=== PATIENT | female | born 1990 | race Caucasian/White ===

== ENCOUNTER 2019-02-20 07:02 | Inpatient (IN) | payer OTHER ==
[2019-02-20 07:50] LABS: APPEARANCE,URINE SLIGHTLY-CLOUDY; BILIRUBIN,URINE NEGATIVE (NEGATIVE); COLOR,URINE YELLOW; GLUCOSE, URINE NEGATIVE (NEGATIVE); KETONES,URINE NEGATIVE (NEGATIVE); LEUKOCYTE ESTERASE,URINE NEGATIVE (NEGATIVE); NITRITE,URINE NEGATIVE (NEGATIVE); PROTEIN,URINE 30 mg/dL (NEGATIVE); URINE SPECIFIC GRAVITY 1.014; UROBILINOGEN,URINE NEGATIVE mg/dL (<2.0)
[2019-02-20] MEDS: RINGERS SOLUTION,LACTATED 1,000 ML IV PRN ×4 (08:10→17:32)
[2019-02-20 08:13] LABS: URINE AMPHETAMINES SCREEN NEGATIVE; URINE BARBITURATES SCREEN NEGATIVE; URINE BENZODIAZEPINES SCREEN NEGATIVE; URINE COCAINE SCREEN NEGATIVE; URINE MARIJUANA (THC) SCREEN NEGATIVE; URINE METHADONE SCREEN NEGATIVE; URINE PHENCYCLIDINE SCREEN NEGATIVE
[2019-02-20] MEDS ORDERED: PENICILLIN G-K 5 MILLION UNIT VIAL ONE ×4 (08:25→20:12)
[2019-02-20] MEDS ORDERED: PENICILLIN G-K 5 MILLION UNIT VIAL IV ONE (08:30)
[2019-02-20 09:05] LABS: HEMATOCRIT 29.9 % (36.0-47.0); MEAN CORPUSCULAR HEMOGLOBIN 29.7 pg (27.0-33.4); MEAN CORPUSCULAR HGB CONC 33.4 g/dL (32.0-36.0); MEAN CORPUSCULAR VOLUME 89 fl (80-97); PLATELET COUNT 193 10^3/uL (150-450); RED BLOOD COUNT 3.36 10^6/uL (3.72-5.28); RED CELL DISTRIBUTION WIDTH 14.3 % (11.5-14.0); WHITE BLOOD COUNT 11.9 10^3/uL (4.0-10.5)
[2019-02-20] MEDS ORDERED: OXYTOCIN/NORMAL SALINE 20 UNIT/1,000 ML RTUINJ ONE (09:05)
[2019-02-20] MEDS ORDERED: LIDOCAINE 1% INJ-PF (10 MG/ML) 30 ML SDV ONE (09:05)
[2019-02-20] MEDS ORDERED: MISOPROSTOL 0.2 MG TABLET ONE (09:05)
[2019-02-20] MEDS ORDERED: OXYTOCIN 10 UNIT/ML VIAL ONE (09:05)
--- NOTE | 2019-02-20 10:33 | Warning Signs in Babies ---
VOD Warning Signs Datetime Report Generated by CPN: 02/20/2019 10:32 VOD#608 -Warning Signs in Babies: Viewed with Parent(s)/Family (02/20/2019 10:15:Lisa Lacy RN)
[2019-02-20] MEDS ORDERED: NALBUPHINE HCL INJ 10 MG/1 ML AMPULE INJ ONE (11:46)
[2019-02-20] MEDS ORDERED: PROMETHAZINE HCL INJ 25 MG/1 ML VIAL IV ONE (11:47)
[2019-02-20] MEDS ORDERED: FENTANYL/BUPIVACAINE/NS/PF 300 MCG/150 ML RTUINJ EPI ONE (11:57)
[2019-02-20] MEDS ORDERED: BUPIVACAINE HCL 0.25 % INJ/PF (2.5 MG/1 ML) 30 ML VIAL ONE (11:57)
[2019-02-20] MEDS ORDERED: EPHEDRINE SULFATE INJ 50 MG/1 ML AMPULE ONE (11:57)
[2019-02-20] MEDS: PENICILLIN G-K 5 MILLION UNIT VIAL IV SCH ×3 (12:12→20:20)
--- NOTE | 2019-02-20 15:03 | Admission Physical ---
Datetime Report Generated by CPN: 02/20/2019 15:02 CURRENT ADMISSION Chief Complaint: Uterine Contractions; Suspected Ruptured Membranes Admit Impression : Active Labor; Ruptured Membranes Admit Plan: Admit to Unit; Initiate Labor Protocol; Initiate Labor Augmentation Protocol ALLERGIES Medication Allergies: No Medication Allergies: No Known Drug Allergies (02/20/2019) Latex: No Latex Allergies Food Allergies: NONE Environmental Allergies: YES, TREES AND GRASS OBSTETRICAL HISTORY EDC: 02/28/2019 00:00 : 1 Para: 0 Term: 0 : 0 SAB: 0 IAB: 0 Ectopic: 0 Livin Cesareans: 0 VBACs: 0 Multiple Births: 0 Gestational Diabetes: No Rh Sensitization: No Incompetent Cervix: No HENRY: No Infertility: No ART Treatment: No Uterine Anomaly: No IUGR: No Hx Previous C/S: No Macrosomia: No Hx Loss/Stillborn: No PIH: No Hx : No Placenta Previa/Abruption: No Depression/PP Depression: No PTL/PROM: No Post Hemorrhage: No Current Procedures: Ultrasound; Colposcopy Obstetrical History Comments: G1- CURRENT , ABNORMAL PAP RESULTING IN COLPOSCOPY SEE RECORDS Alcohol: No Marijuana : No Cocaine: No Other Illicit Drugs: No Cigarettes: Never Smoker. [id number] MEDICAL HISTORY Diabetes: No Blood Transfusion: No Pulmonary Disease (Asthma, TB): No Breast Disease: No Hypertension: No School Director Surgery: No Heart Disease: No Hosp/Surgery: No Autoimmune Disorder: No Anesthetic Complications: No Kidney Disease: No Abnormal Pap Smear: Yes Neuro/Epilepsy: No Psychiatric Disorders: No Other Medical Diseases: No Hepatitis/Liver Disease: No Significant Family History: No Varicosities/Phlebitis: No Trauma/Violence : No Thyroid Dysfunction: No Medical History Comments: ABNORMAL PAP THIS INFECTIOUS HISTORY Gonorrhea: No Genital Herpes: No Chlamydia: No Tuberculosis: No Syphilis: No Hepatitis: No HIV/AIDS Exposure: No Rash or Viral Illness: No HPV: No PHYSICAL EXAM General: Normal HEENT: Normal Neurologic: Normal Thyroid: Normal Heart: Normal Lungs: Normal Breast: Normal Back: Normal Abdomen: Normal Genitourinary Exam: Normal Extremities: Normal DTRs: Normal Pelvic Type: Adequate Vital Signs: Reviewed; Within Normal Limits VAGINAL EXAM Dilatation: 5 Effacement: 50 Station: -2 MEMBRANES Pooling: Positive Membranes: Ruptured Amniotic Fluid Color: Clear FETUS A EGA: 38.6 Monitoring: External US FHR- Baseline: 130 Variability: Moderate 6-25bpm Accelerations: 15X15 Decelerations: None FHR Category: Category I Presentation: Vertex Admit Comment: G1 at 38.6 with SROM at 0400, clear -Admit to LDR -IVFs and ice chips only -GBS positive, PCN for prophylaxis -Amnisure positive -If contractions not regular begin low dose pitocin IV as needed -Plan for -Desires epidural when indicated PLANS FOR LABOR AND DELIVERY Labor and Delivery: None Pain Management: Natural Feeding Preference: Formula Benefit of Breast Feed Discussed: Yes Circumcision: Yes INFORMED CONSENT Informed Consent Obtained: Vaginal Delivery; Risks, Benefits and Alternatives Discussed Signature: with User ID: [email or web address] : with User ID: [email or web address]
[2019-02-20] MEDS ORDERED: PANTOPRAZOLE SODIUM 40 MG VIAL IV SCH (19:45)
[2019-02-20] MEDS ORDERED: GENTAMICIN SULFATE 110 MG in DEXTROSE 5%-WATER 100 ML IV SCH (22:00)
[2019-02-20] MEDS ORDERED: GENTAMICIN SULFATE INJ 80 MG/2 ML VIAL IV PRN (22:00)
[2019-02-20] MEDS ORDERED: LIDOCAINE 2% INJ-PF (20 MG/ML) 10 ML AMPUL ONE (22:11)
[2019-02-21] MEDS ORDERED: BENZOCAINE/MENTHOL AEROSOL SPRAY 56 ML TOP PRN (02:27)
[2019-02-21] MEDS ORDERED: ACETAMINOPHEN 650 MG SUPP.RECT PR PRN (02:27)
[2019-02-21] MEDS ORDERED: PROMETHAZINE HCL INJ 25 MG/1 ML VIAL IV PRN (02:27)
[2019-02-21] MEDS ORDERED: DIPHENHYDRAMINE HCL 25 MG CAPSULE PO PRN (02:27)
[2019-02-21] MEDS ORDERED: MEASLES,MUMPS&RUBELLA VACC/PF 0.5 ML VIAL SUBCUT PRN (02:27)
[2019-02-21] MEDS ORDERED: PSEUDOEPHEDRINE HCL 30 MG TABLET PO PRN (02:27)
[2019-02-21] MEDS ORDERED: GLYCERIN/WITCH HAZEL LEAF 1 EACH MED..WIPE TP PRN (02:27)
[2019-02-21] MEDS ORDERED: PROMETHAZINE HCL 25 MG TABLET PO PRN (02:27)
[2019-02-21] MEDS ORDERED: ACETAMINOPHEN WITH CODEINE #3 TABLET PO PRN ×2 (02:27)
[2019-02-21] MEDS ORDERED: MAGNESIUM HYDROXIDE SUSP 30 ML UDCUP PO PRN (02:27)
[2019-02-21] MEDS ORDERED: PROMETHAZINE HCL 25 MG SUPP.RECT PR PRN (02:27)
[2019-02-21] MEDS ORDERED: NA PHOS,M-B/NA PHOS,DI-BA (ADULT) 133 ML ENEMA PR PRN (02:27)
[2019-02-21] MEDS ORDERED: DIPH/PERTUSS(ACELL)/TETANUS VAC/PF 0.5 ML SYR (>=10YO) IM PRN (02:27)
[2019-02-21] MEDS ORDERED: OXYTOCIN/NORMAL SALINE 20 UNIT/1,000 ML RTUINJ IV PRN (02:27)
[2019-02-21] MEDS ORDERED: DIBUCAINE 1% OINTMENT 56 GM TP PRN (02:27)
[2019-02-21] MEDS: PENICILLIN G-K 5 MILLION UNIT VIAL IV SCH (02:38)
[2019-02-21] MEDS ORDERED: IBUPROFEN 800 MG TABLET ONE (02:41)
[2019-02-21] MEDS ORDERED: SENNOSIDES/DOCUSATE 8.6-50 MG 1 EACH TABLET ONE (02:41)
[2019-02-21] MEDS: SENNOSIDES/DOCUSATE 8.6-50 MG 1 EACH TABLET PO SCH ×2 (02:43→09:52)
[2019-02-21] MEDS: IBUPROFEN 800 MG TABLET PO SCH ×4 (02:43→22:23)
--- NOTE | 2019-02-21 03:38 | Delivery Summary ---
Del Sum A-C Datetime Report Generated by CPN: 02/21/2019 03:38 DELIVERY PERSONNEL DELIVERY PERSONNEL: [id number] Delivery Doctor:: Dawna Mckeon MD Labor and Delivery Nurse:: Anita Fair RNarea mechanic Nurse:: Suzette Borges RN Nursery Nurse:: Hayley Fair RN Return Agent/BLOW PIT OPERATOR: Kirstin Remington, WEBFED OFFSET PRESS OPERATOR MATERNAL INFORMATION Delivery Anesthesia: Epidural Medications After Delivery: Pitocin Bolus-Please Comment Meds After Delivery Comment: Pitocin 20 units/1000 ml NSS Estimated Blood Loss (ml): 200 Maternal Complications: None Provider Comments: Maternal fatigue encountered. Discussed vacuum assisted delivery and patient was agreeable. RIsks and benefits reviewed. A Kiwi vacuum was applied approximately 2 cm anterior from the posterior fontanel over the sagital suture. Suction was applied and traction used with maternal pushing during one contraction.THe head progressed past the introitus and the vacuum was released. After delivery of the head, a shoulder dystocia was encountered. Elida was initiated. Suprapubic pressure applied by RN and posterior shoulder turned with physicians hand in vagina. Following these maneuvers, then anterior shoulder delivered. The shoulders and the rest of the body followed easily. began crying with stimulation. Terminal meconium noted. Placenta delivered spontaneously and intact. A third degree laceration was noted into the rectal muscle. The muscle was stitched with interrupted stitiches and then the remaining laceration was repaired in a layered closure. A digital rectal exam was done noting no stitch or defect. MOther and infant both stable. LABOR SUMMARY EDC: 02/28/2019 00:00 No. Babies in Womb: 1 Attempted: No Labor Anesthesia: Epidural LABOR INFORMATION Reason for Induction: Not Applicable Onset of Labor: 02/20/2019 04:30 Complete Dilatation: 02/20/2019 16:17 Oxytocin: N/A Group B Beta Strep: POSITIVE Antibiotics # of Doses: 4 Antibiotics Time of Last Dose: 2019 Name of Antibiotic Given: PENICILLIN Steroids Given: None Reason Steroids Not Administered: Not Applicable Other Reason Not Administered: N/A MEMBRANES Membranes Rupture Method: Spontaneous Rupture of Membranes: 02/20/2019 04:30 Length of Rupture (hr): 20.65 Amniotic Fluid Color: Clear Amniotic Fluid Amount: Moderate Amniotic Fluid Odor: None STAGES OF LABOR Stage 1 hr: 11 Stage 1 min: 47 Stage 2 hr: 8 Stage 2 min: 52 Stage 3 hr: 0 Stage 3 min: 7 Total Time in Labor hr: 20 Total Time in Labor min: 46 VAGINAL DELIVERY Episiotomy: None Laceration #1: Perineal Laceration Extension #1: Third Degree, IIIa (Less than 50 percent ext anal sphincter thickness torn) Laceration Repair: Yes Laceration Repair Note: layered closure with interrupted suture in the rectal muscle, and 2-0 chromic used in a running layered closure for the remaining closure. Sponge Count Correct: Yes Sharps Count Correct: Yes CSECTION DELIVERY Primary Indication: N/A Secondary Indication: N/A CSection Incidence: N/A Labor: N/A Elective: N/A CSection Incision: N/A BABY A INFORMATION Delivery Date/Time: 02/21/2019 01:09 Method of Delivery: Vaginal Born in Route : No : N/A Forceps: N/A Vacuum Extraction: Successful Shoulder Dystocia : Yes SHOULDER DYSTOCIA BABY A Delivery of Head: 02/21/2019 01:07 Time Head to Delivery : 2.0 1st Intervention to Resolve: McRobert's Maneuver 2nd Intervention to Resolve: Suprapubic Pressure Verify NO Fundal Pressure: No Fundal Pressure Applied Arm Under Symphisis at Del: Right PRESENTATION/POSITION BABY A Presentation: Cephalic Cephalic Presentation: Vertex Breech Presentation: N/A PLACENTA INFORMATION BABY A Placenta Delivery Time : 02/21/2019 01:16 Placenta Method of Delivery: Spontaneous Placenta Status: Delivered SCORES BABY A Heart Rate 1 min: >100 bpm Resp Effort 1 min: Good Cry Reflex Irritability 1 min: Cough or Sneeze or Pulls Away Muscle Tone 1 min: Active Motion Color 1 min: Blue/Pale Resuscitation Effort 1 min: Tactile Stimulation SCORE 1 MIN: 8 Heart Rate 5 min: >100 bpm Resp Effort 5 min: Good Cry Reflex Irritability 5 min: Cough or Sneeze or Pulls Away Muscle Tone 5 min: Active Motion Color 5 min: Body Caro, Extremities Blue Resuscitation Effort 5 min: Tactile Stimulation SCORE 5 MIN: 9 INFANT INFORMATION BABY A Gestational Age at Delivery: 39.0 Gestational Status: Full Term- 39- 40.6 Weeks Infant Outcome : Liveborn Condition : Stable Infant Sex: Male IDENTIFICATION BABY A Infant Verification Date/Time: 02/21/2019 01:25 ID Band Number: [id number] Mother's Name Verified: Yes RN Verifying Infant: , RN Additional Verifying Personnel: A.Remington, WEBFED OFFSET PRESS OPERATOR WEIGHT/LENGTH BABY A Birthweight (gm): 3926 Infant Weight (lb): 8 Weight (oz): 10 Infant Length (in): 20.25 Length (cm): 51.44 CORD INFORMATION BABY A No. Cord Vessels: 3 Nuchal Cord : N/A Cord Blood Taken: Yes-For Eval (Mom's Blood Type - or O+) ASSESSMENT BABY A Infant Complications: None Physical Findings at Delivery: Caput Succedaneum Infant Respirations: Appears Normal Skin to Skin: Yes Care By: Carole, RN Transferred To: Remains with Mother BABY B INFORMATION : N/A SIGNATURES Signature: with User ID: [email or web address] : with User ID: [email or web address]
[2019-02-21] MEDS ORDERED: CEFAZOLIN 2 GM/D5W RTU 2 GM/50 ML RTUPB IV ONE (06:00)
[2019-02-21] MEDS ORDERED: CEFAZOLIN 2 GM/D5W RTU 2 GM/50 ML RTUPB IV SCH (06:00)
[2019-02-21] MEDS ORDERED: CEFAZOLIN INJ 1 GM VIAL ONE (06:21)
--- NOTE | 2019-02-21 09:18 | PDOC PROGRESS REPORT ---
Subjective-OB Progress Note for:: 02/21/19 - Delivery Day, pt up, voiding, no complaints, plans to bottle feed. Had VAD w/ mild shoulder dystocia. Physical Exam (OB) Vital Signs: Temp Pulse Resp BP Pulse Ox 98.5 F 104 H 14 105/56 L 99 02/21/19 07:15 02/21/19 07:15 02/21/19 07:15 02/21/19 07:15 02/21/19 07:15 Intake & Output 02/20/19 02/21/19 02/22/19 06:59 06:59 06:59 Intake Total 1171 Balance 1171 Weight 73.1 kg - General General Appearance: Appears well, Alert In distress: None - Lochia Lochia Amount: Small 10-25 ml Lochia Color: Rubra/Red - Abdomen Description: Soft Hernia Present: No Fundal Description: Firm, Midline Fundal Height: u/u - u/2 - Respiratory Respiratory Status: No respiratory distress - Genitourinary Genitourinary Note: voiding - Psychological Associated symptoms: Normal affect, Normal mood Objective-Diagnostic Laboratory: 02/20/19 08:46 02/20/19 08:46 Blood Type O POSITIVE Antibody Screen NEGATIVE Assessment and Plan(PN) - Assessment and Plan (1) Shoulder (girdle) dystocia during labor and deliver, delivered Is this a current diagnosis for this admission?: Yes (2) Obstetric vaginal laceration with type 3a third degree perineal laceration Is this a current diagnosis for this admission?: Yes (3) Vacuum extraction, delivered, current hospitalization Is this a current diagnosis for this admission?: Yes - Time Spent with Patient Time with patient: Less than 15 minutes - Disposition Anticipated Discharge: Home Within: within 48 hours
[2019-02-21] MEDS: FERROUS SULFATE 325 MG TABLET PO SCH ×2 (09:52→17:45)
[2019-02-21] MEDS: PRENATAL VITAMIN W DHA CAPSULE PO SCH (09:52)
[2019-02-21] MEDS: DOCUSATE SODIUM 100 MG CAPSULE PO SCH ×2 (09:52→17:46)
[2019-02-21] MEDS: FAMOTIDINE 20 MG TABLET PO SCH ×2 (09:52→22:23)
[2019-02-22] MEDS: IBUPROFEN 800 MG TABLET PO SCH ×3 (06:21→21:22)
[2019-02-22 06:53] LABS: HEMATOCRIT 21.1 % (36.0-47.0); MEAN CORPUSCULAR HEMOGLOBIN 29.5 pg (27.0-33.4); MEAN CORPUSCULAR HGB CONC 32.8 g/dL (32.0-36.0); MEAN CORPUSCULAR VOLUME 90 fl (80-97); PLATELET COUNT 151 10^3/uL (150-450); RED BLOOD COUNT 2.35 10^6/uL (3.72-5.28); RED CELL DISTRIBUTION WIDTH 14.3 % (11.5-14.0); WHITE BLOOD COUNT 16.5 10^3/uL (4.0-10.5)
[2019-02-22 07:12] LABS: HEMOGLOBIN 6.9 g/dL (12.0-15.5)
--- NOTE | 2019-02-22 09:42 | PDOC DISCHARGE SUMMARY ---
Impression - Admit/DC Date/PCP Admission Date/Primary Care Provider: 02/20/19 08:03 Discharge Date: 02/22/19 - POD 1 1/2, pt doing well, denies dizziness, SOB, or increased heart rate w/ ambulation. Desires to go home today. O+, Rubella Immune, hx VAD w/ shoulder dystocia and 3rd degree laceration. - Discharge Diagnosis (1) Shoulder (girdle) dystocia during labor and deliver, delivered Is this a current diagnosis for this admission?: Yes (2) Obstetric vaginal laceration with type 3a third degree perineal laceration Is this a current diagnosis for this admission?: Yes (3) Vacuum extraction, delivered, current hospitalization Is this a current diagnosis for this admission?: Yes (4) Acute blood loss anemia Is this a current diagnosis for this admission?: Yes - Additional Information Resuscitation Status: Full Code Discharge Diet: As Tolerated, Regular Discharge Activity: Activity As Tolerated, No Lifting Over 10 Pounds, Pelvic Rest Prescriptions: Docusate Sodium [Colace 100 mg Capsule] 100 mg PO BID #60 capsule Ibuprofen [Motrin 800 mg Tablet] 800 mg PO Q8 #60 tablet Home Medications: Cetirizine HCl [Zyrtec 10 mg Tablet] 1 tab PO DAILY 01/27/18 Pnv No.95/Ferrous Fum/Folic AC [ Vitamin Tablet] 1 each PO DAILY 01/27/18 Lactobacillus Combo No.10 [Probiotic] 1 each PO DAILY 02/20/19 Docusate Sodium [Colace 100 mg Capsule] 100 mg PO BID #60 capsule 02/22/19 Ferrous Sulfate [Feosol 325 mg Tablet] 325 mg PO BID #60 tablet 02/22/19 Ibuprofen [Motrin 800 mg Tablet] 800 mg PO Q8 #60 tablet 02/22/19 HPI Reason(s) for Admission: Onset of Labor Procedures: Ultrasound Intrapartum Procedure(s): Vacuum Extraction Complication(s): Laceration-Perineal, Hemorrhage-Uterine Atony, Other - shoulder dystocia Laceration-Degree: 3rd Hospital Course Hospital Course: uncomplicated PP course Results Laboratory Results: WBC 16.5 10^3/uL (4.0-10.5) H 02/22/19 06:00 RBC 2.35 10^6/uL (3.72-5.28) L 02/22/19 06:00 Hgb 6.9 g/dL (12.0-15.5) L D 02/22/19 06:00 Hct 21.1 % (36.0-47.0) L 02/22/19 06:00 MCV 90 fl (80-97) 02/22/19 06:00 MCH 29.5 pg (27.0-33.4) 02/22/19 06:00 MCHC 32.8 g/dL (32.0-36.0) 02/22/19 06:00 RDW 14.3 % (11.5-14.0) H 02/22/19 06:00 Plt Count 151 10^3/uL (150-450) 02/22/19 06:00 Urine Color YELLOW 02/20/19 07:35 Urine Appearance SLIGHTLY-CLOUDY 02/20/19 07:35 Urine pH 6.0 (5.0-9.0) 02/20/19 07:35 Ur Specific [place] 1.014 02/20/19 07:35 Urine Protein 30 mg/dL (NEGATIVE) H 02/20/19 07:35 Urine Glucose (UA) NEGATIVE mg/dL (NEGATIVE) 02/20/19 07:35 Urine Ketones NEGATIVE mg/dL (NEGATIVE) 02/20/19 07:35 Urine Blood SMALL (NEGATIVE) H 02/20/19 07:35 Urine Nitrite NEGATIVE (NEGATIVE) 02/20/19 07:35 Urine Bilirubin NEGATIVE (NEGATIVE) 02/20/19 07:35 Urine Urobilinogen NEGATIVE mg/dL (<2.0) 02/20/19 07:35 Ur Leukocyte Esterase NEGATIVE (NEGATIVE) 02/20/19 07:35 Urine Ascorbic Acid NEGATIVE (NEGATIVE) 02/20/19 07:35 Membranes Rupture POSITIVE (NEGATIVE) H 02/20/19 07:27 Urine Opiates Screen NEGATIVE 02/20/19 07:35 Urine Methadone Screen NEGATIVE 02/20/19 07:35 Ur Barbiturates Screen NEGATIVE 02/20/19 07:35 Ur Phencyclidine Scrn NEGATIVE 02/20/19 07:35 Ur Amphetamines Screen NEGATIVE 02/20/19 07:35 U Benzodiazepines Scrn NEGATIVE 02/20/19 07:35 Urine Cocaine Screen NEGATIVE 02/20/19 07:35 U Marijuana (THC) Screen NEGATIVE 02/20/19 07:35 RPR NONREACTIVE (NONREACTIVE) 02/20/19 08:46 Blood Type O POSITIVE 02/20/19 08:46 Antibody Screen NEGATIVE 02/20/19 08:46 Plan Health Concerns: Iron rich foods and taking iron supplements discussed. Precautions reviewed Plan of Treatment: d/c home today in stable condition. pt to f/u with Dr Mckeon at [facility] in 7-10 days Time Spent: Less than 30 Minutes
[2019-02-22] MEDS: SENNOSIDES/DOCUSATE 8.6-50 MG 1 EACH TABLET PO SCH (09:52)
[2019-02-22] MEDS: FERROUS SULFATE 325 MG TABLET PO SCH ×2 (09:52→17:34)
[2019-02-22] MEDS: FAMOTIDINE 20 MG TABLET PO SCH ×2 (09:52→21:23)
[2019-02-22] MEDS: DOCUSATE SODIUM 100 MG CAPSULE PO SCH ×2 (09:52→17:34)
[2019-02-22] MEDS: PRENATAL VITAMIN W DHA CAPSULE PO SCH (09:52)
[2019-02-23] MEDS: IBUPROFEN 800 MG TABLET PO SCH (06:00)
[2019-02-23 07:41] VITALS: BP 129/70
--- NOTE | 2019-02-23 09:44 | PDOC DISCHARGE SUMMARY ---
Impression - Admit/DC Date/PCP Admission Date/Primary Care Provider: 02/20/19 08:03 Discharge Date: 02/23/19 - PP Day #2, pt doing well, ambulating to N without difficulty, bottlefeeding, O+, Rubella Immune, Hx VAD w/ shoulder dystocia, GBS+, treated w/ PNC - Discharge Diagnosis (1) Shoulder (girdle) dystocia during labor and deliver, delivered Is this a current diagnosis for this admission?: Yes (2) Obstetric vaginal laceration with type 3a third degree perineal laceration Is this a current diagnosis for this admission?: Yes (3) Vacuum extraction, delivered, current hospitalization Is this a current diagnosis for this admission?: Yes (4) Acute blood loss anemia Is this a current diagnosis for this admission?: Yes - Additional Information Resuscitation Status: Full Code Discharge Diet: As Tolerated, Regular Discharge Activity: Activity As Tolerated, No Lifting Over 10 Pounds, Pelvic Rest Prescriptions: Docusate Sodium [Colace 100 mg Capsule] 100 mg PO BID #60 capsule Ibuprofen [Motrin 800 mg Tablet] 800 mg PO Q8 #60 tablet Home Medications: Cetirizine HCl [Zyrtec 10 mg Tablet] 1 tab PO DAILY 01/27/18 Pnv No.95/Ferrous Fum/Folic AC [ Vitamin Tablet] 1 each PO DAILY 01/27/18 Lactobacillus Combo No.10 [Probiotic] 1 each PO DAILY 02/20/19 Docusate Sodium [Colace 100 mg Capsule] 100 mg PO BID #60 capsule 02/22/19 Ferrous Sulfate [Feosol 325 mg Tablet] 325 mg PO BID #60 tablet 02/22/19 Ibuprofen [Motrin 800 mg Tablet] 800 mg PO Q8 #60 tablet 02/22/19 HPI Reason(s) for Admission: Onset of Labor Procedures: Ultrasound Intrapartum Procedure(s): Vacuum Extraction, Other - w/ shoulder dystocia Complication(s): Hemorrhage-Uterine Atony Laceration-Degree: 3rd Hospital Course Hospital Course: uncomplicated PP course Results Laboratory Results: WBC 16.5 10^3/uL (4.0-10.5) H 02/22/19 06:00 RBC 2.35 10^6/uL (3.72-5.28) L 02/22/19 06:00 Hgb 6.9 g/dL (12.0-15.5) L D 02/22/19 06:00 Hct 21.1 % (36.0-47.0) L 02/22/19 06:00 MCV 90 fl (80-97) 02/22/19 06:00 MCH 29.5 pg (27.0-33.4) 02/22/19 06:00 MCHC 32.8 g/dL (32.0-36.0) 02/22/19 06:00 RDW 14.3 % (11.5-14.0) H 02/22/19 06:00 Plt Count 151 10^3/uL (150-450) 02/22/19 06:00 Urine Color YELLOW 02/20/19 07:35 Urine Appearance SLIGHTLY-CLOUDY 02/20/19 07:35 Urine pH 6.0 (5.0-9.0) 02/20/19 07:35 Ur Specific [place] 1.014 02/20/19 07:35 Urine Protein 30 mg/dL (NEGATIVE) H 02/20/19 07:35 Urine Glucose (UA) NEGATIVE mg/dL (NEGATIVE) 02/20/19 07:35 Urine Ketones NEGATIVE mg/dL (NEGATIVE) 02/20/19 07:35 Urine Blood SMALL (NEGATIVE) H 02/20/19 07:35 Urine Nitrite NEGATIVE (NEGATIVE) 02/20/19 07:35 Urine Bilirubin NEGATIVE (NEGATIVE) 02/20/19 07:35 Urine Urobilinogen NEGATIVE mg/dL (<2.0) 02/20/19 07:35 Ur Leukocyte Esterase NEGATIVE (NEGATIVE) 02/20/19 07:35 Urine Ascorbic Acid NEGATIVE (NEGATIVE) 02/20/19 07:35 Membranes Rupture POSITIVE (NEGATIVE) H 02/20/19 07:27 Urine Opiates Screen NEGATIVE 02/20/19 07:35 Urine Methadone Screen NEGATIVE 02/20/19 07:35 Ur Barbiturates Screen NEGATIVE 02/20/19 07:35 Ur Phencyclidine Scrn NEGATIVE 02/20/19 07:35 Ur Amphetamines Screen NEGATIVE 02/20/19 07:35 U Benzodiazepines Scrn NEGATIVE 02/20/19 07:35 Urine Cocaine Screen NEGATIVE 02/20/19 07:35 U Marijuana (THC) Screen NEGATIVE 02/20/19 07:35 RPR NONREACTIVE (NONREACTIVE) 02/20/19 08:46 Blood Type O POSITIVE 02/20/19 08:46 Antibody Screen NEGATIVE 02/20/19 08:46 Plan Health Concerns: Iron rich foods and taking iron supplements discussed. Precautions reviewed Plan of Treatment: d/c home today in stable condition. pt to f/u with Dr Mckeon at [facility] in 7-10 days
== END 2019-02-23 13:06 | disposition home or self-care (01) | DRG 768 ==
LOC: LC 07:02 → LR 08:03 → MERGE 08:03 → 2S 02-21 03:58
PROVIDERS: ADMIT Obstetrics & Gynecology; ATTEND Obstetrics & Gynecology
PROC: 10D07Z6 Extraction of Products of Conception, Vacuum, Via Natural or Artificial Opening (ICD-10-PCS; principal; 2019-02-21)
PROC: 0DQR0ZZ Repair Anal Sphincter, Open Approach (ICD-10-PCS; 2019-02-21)
DX: O66.0 Obstructed labor due to shoulder dystocia (principal); O70.21 Third degree perineal laceration during delivery, IIIa; D62 Acute posthemorrhagic anemia; O72.1 Other immediate postpartum hemorrhage; O99.824 Streptococcus B carrier state complicating childbirth; O75.81 Maternal exhaustion complicating labor and delivery; Z3A.38 38 weeks gestation of pregnancy; O77.0 Labor and delivery complicated by meconium in amniotic fluid; O99.02 Anemia complicating childbirth; Z37.0 Single live birth
CPT/HCPCS: 36415; 80307; 81005; 84112; 85027; 86592; 86850; 86900; 86901; 94760; J0690; J1580; J2540; J2590; J3010; J3490; J7060

== ENCOUNTER 2019-04-06 09:34 | Emergency (ER) | payer OTHER ==
[2019-04-06] MEDS ORDERED: ONDANSETRON 4 MG TAB.RAPDIS PO ONE (10:15)
--- NOTE | 2019-04-06 10:17 | ER Document Report ---
ED Medical Screen (RME) - General Chief Complaint: Abdominal Pain Stated Complaint: ABDOMINAL PAIN,NAUSEA Time Seen by Provider: 04/06/19 10:10 Mode of Arrival: Ambulatory Information source: Patient Notes: 28-year-old female presents emergency department with complaints of lower abdominal pain started on Sunday. Reports started Sunday afternoon she became lightheaded dizzy. She ended up calling her neighbor to come over and take care of her baby that was born February 21 to take care of the baby. Patient is not breast-feeding. Her friend reports she seemed confused at that time it is better now. Reports some nausea since that time did also reports vomiting twice with diarrhea multiple times. She denies pain with void. Denies vaginal discharge. Denies fever. Patient did receive her flu vaccine I have greeted and performed a rapid initial assessment of this patient. A comprehensive ED assessment and evaluation of the patient, analysis of test results and completion of the medical decision making process will be conducted by additional ED providers. TRAVEL OUTSIDE OF THE [place] IN LAST 30 DAYS: No - Related Data Allergies/Adverse Reactions: No Known Drug Allergies Allergy (Verified 02/24/19 14:35) Past Medical History Pulmonary Medical History: Reports: Hx Asthma Renal/ Medical History: Denies: Hx Peritoneal Dialysis Physical Exam - Vital signs Vitals: Temp Pulse Resp BP Pulse Ox 97.9 F 98 20 107/79 99 04/06/19 09:56 04/06/19 09:56 04/06/19 09:56 04/06/19 09:56 04/06/19 09:56 Course - Vital Signs Vital signs: Temp Pulse Resp BP Pulse Ox 97.9 F 98 20 107/79 99 04/06/19 09:56 04/06/19 09:56 04/06/19 09:56 04/06/19 09:56 04/06/19 09:56
[2019-04-06] MEDS ORDERED: NORMAL SALINE 1000 ML 1,000 ML IV ONE ×3 (10:50→14:57)
[2019-04-06 10:55] LABS: ABSOLUTE LYMPHOCYTES (AUTO) 1.3 10^3/uL (0.5-4.7); ABSOLUTE MONOCYTES (AUTO) 0.2 10^3/uL (0.1-1.4); ABSOLUTE NEUT (AUTO) 7.8 10^3/uL (1.7-8.2); BASOPHILS % (AUTO) 0.4 % (0-2); HEMATOCRIT 40.3 % (36.0-47.0); HEMOGLOBIN 13.5 g/dL (12.0-15.5); LYMPHOCYTES % (AUTO) 13.5 % (13-45); MEAN CORPUSCULAR HEMOGLOBIN 30.2 pg (27.0-33.4); MEAN CORPUSCULAR HGB CONC 33.5 g/dL (32.0-36.0); MEAN CORPUSCULAR VOLUME 90 fl (80-97); MONOCYTES % (AUTO) 2.6 % (3-13); PLATELET COUNT 248 10^3/uL (150-450); RED BLOOD COUNT 4.48 10^6/uL (3.72-5.28); RED CELL DISTRIBUTION WIDTH 15.1 % (11.5-14.0); SEGMENTED NEUTROPHILS % (AUTO) 83.5 % (42-78); TOTAL CELLS COUNTED % (AUTO) 100 %; WHITE BLOOD COUNT 9.3 10^3/uL (4.0-10.5)
[2019-04-06 11:08] LABS: APPEARANCE,URINE SLIGHTLY-CLOUDY; BILIRUBIN,URINE NEGATIVE (NEGATIVE); COLOR,URINE YELLOW; GLUCOSE, URINE NEGATIVE (NEGATIVE); KETONES,URINE 20 mg/dL (NEGATIVE); LEUKOCYTE ESTERASE,URINE NEGATIVE (NEGATIVE); NITRITE,URINE NEGATIVE (NEGATIVE); PROTEIN,URINE 30 mg/dL (NEGATIVE); UROBILINOGEN,URINE NEGATIVE mg/dL (<2.0)
[2019-04-06] MEDS ORDERED: DICYCLOMINE HCL INJ 20 MG/2 ML AMPULE IM ONE (11:16)
[2019-04-06 11:24] LABS: ALBUMIN 4.2 g/dL (3.5-5.0); ALKALINE PHOSPHATASE 85 U/L (38-126); ANION GAP 15 (5-19); ASPARTATE AMINO TRANSFERASE 25 U/L (14-36); BILIRUBIN,DIRECT 0.2 mg/dL (0.0-0.4); BILIRUBIN,TOTAL 0.7 mg/dL (0.2-1.3); BLOOD UREA NITROGEN 11 mg/dL (7-20); CALCIUM 9.6 mg/dL (8.4-10.2); CARBON DIOXIDE 25 mmol/L (22-30); CHLORIDE 98 mmol/L (98-107); GLUCOSE 97 mg/dL (75-110); POTASSIUM 4.7 mmol/L (3.6-5.0); TOTAL PROTEIN 7.6 g/dL (6.3-8.2)
--- NOTE | 2019-04-06 12:47 | RADIOLOGY REPORT (SQ) ---
EXAM DESCRIPTION: CT ABD/PELVIS WITH IV ONLY COMPLETED DATE/TIME: 04/06/2019 11:22 am REASON FOR STUDY: abd pain - right sided and lower, n/v/d . COMPARISON: None. TECHNIQUE: CT scan of the abdomen and pelvis performed using helical scanning technique with dynamic intravenous contrast injection. No oral contrast. Images reviewed with lung, soft tissue, and bone windows. Reconstructed coronal and sagittal MPR images reviewed. Delayed images for evaluation of the urinary system also acquired. All images stored on PACS. All CT scanners at this facility use dose modulation, iterative reconstruction, and/or weight based d osing when appropriate to reduce radiation dose to as low as reasonably achievable (ALARA). [facility]: Dose Right [facility]: CareDose [facility]: Dose Right [facility]: Teradose 4D [facility]: [employer] CONTRAST TYPE AND DOSE: contrast/concentration: Isovue 350.00 mg/ml; Total Contrast Delivered: 65.0 ml; Total Saline Delivered: 65.0 ml RENAL FUNCTION: None required. The patient is less than 50 years old. RADIATION DOSE: CT Rad equipment meets quality standard of care and radiation dose reduction techniq ues were employed. CTDIvol: 5.0 - 5.7 mGy. DLP: 558 mGy-cm.. LIMITATIONS: None. FINDINGS: LOWER CHEST: No significant findings. No nodules or infiltrates. LIVER: Normal size. No masses. No dilated ducts. SPLEEN: Normal size. No focal lesions. PANCREAS: No masses. No significant calcifications. No adjacent inflammation or peripancreatic fluid collections. Pancreatic duct not dilated. GALLBLADDER: No identified stones by CT criteria. No inflammatory changes to suggest cholecystitis. ADRENAL GLANDS: No significant masses or asymmetry. RIGHT KIDNEY AND URETER: No solid masses. 3 mm nonobstructing right inferior pole renal calculus. No hydronephrosis or hydroureter. LEFT KIDNEY AND URETER: No solid masses. 3 mm nonobstructing left renal calculus at the inferior po le and punctate nonobstructing left renal calculus at the upper pole. No hydronephrosis or hydroure ter. AORTA AND VESSELS: No aneurysm. No dissection. Renal arteries, SMA, celiac without stenosis. RETROPERITONEUM: No retroperitoneal adenopathy, hemorrhage or masses. BOWEL AND PERITONEAL CAVITY: There is abnormal wall thickening and fluid-filled dilated bowel in the left abdomen upper limits of normal in caliber with surrounding inflammatory change and transition po int in the mid abdomen. There is surrounding inflammatory change and small amount of ascites in the abdomen and pelvis. No pneumoperitoneum. The distal small bowel and colon are decompressed. No bow el mass. APPENDIX: Normal. PELVIS: Uterus and ovaries have normal size. No adnexal mass. ABDOMINAL WALL: Mild diastasis recti. No abdominal hernia. No subcutaneous mass or fluid. BONES: No significant or acute findings. OTHER: No other significant finding. IMPRESSION: 1. Small-bowel obstruction with transition point in the mid abdomen. No perforation or peritoneal ab scess. Small amount of ascites and surrounding inflammatory change. 2. Nonobstructing bilateral renal calculi. TECHNICAL DOCUMENTATION: JOB ID: [id number] Quality ID # [id number]: Final reports with documentation of one or more dose reduction techniques (e.g., Au tomated exposure control, adjustment of the mA and/or kV according to patient size, use of iterative reconstruction technique) 2010 [employer]- All Rights Reserved Reading location - IP/workstation name: [email or web address]
--- NOTE | 2019-04-06 13:55 | ER Document Report ---
ED General - General Chief Complaint: Abdominal Pain Stated Complaint: ABDOMINAL PAIN,NAUSEA Time Seen by Provider: 04/06/19 10:10 Mode of Arrival: Ambulatory Notes: 28-year-old female presents for lower abdominal pain and nausea/vomiting/diarrhea for 3 days. Patient had vaginal delivery in January and states she did tear which required sutures but otherwise no other complications. Patient denies any abdominal surgeries. Patient denies any fever, chills, pelvic pain, vaginal discharge/bleeding. TRAVEL OUTSIDE OF THE [place] IN LAST 30 DAYS: No - Related Data Allergies/Adverse Reactions: No Known Drug Allergies Allergy (Verified 02/24/19 14:35) Past Medical History - General Information source: Patient - Social History Smoking Status: Unknown if Ever Smoked Family History: Reviewed & Not Pertinent Patient has suicidal ideation: No Patient has homicidal ideation: No Pulmonary Medical History: Reports: Hx Asthma Renal/ Medical History: Denies: Hx Peritoneal Dialysis Review of Systems - Review of Systems Notes: Constitutional: Negative for fever. HENT: Negative for sore throat. Eyes: Negative for visual changes. Cardiovascular: Negative for chest pain. Respiratory: Negative for shortness of breath. Gastrointestinal: Positive for abdominal pain, vomiting or diarrhea. Genitourinary: Negative for dysuria. Musculoskeletal: Negative for back pain. Skin: Negative for rash. Neurological: Negative for headaches, weakness or numbness. 10 point ROS negative except as marked above and in HPI. Physical Exam - Vital signs Vitals: Temp Pulse Resp BP Pulse Ox 97.9 F 98 20 107/79 99 04/06/19 09:56 04/06/19 09:56 04/06/19 09:56 04/06/19 09:56 04/06/19 09:56 - Notes Notes: GENERAL: Well-appearing, well-nourished and in no acute distress. HEAD: Atraumatic, normocephalic. EYES: Pupils equal round and reactive to light, extraocular movements intact, sclera anicteric, conjunctiva are normal. ENT: TMs normal, nares patent, oropharynx clear without exudates. Moist mucous membranes. NECK: Normal range of motion, supple without lymphadenopathy or JVD. LUNGS: Breath sounds clear to auscultation bilaterally and equal. No wheezes rales or rhonchi. HEART: Regular rate and rhythm without murmurs, rubs or gallops. ABDOMEN: Soft, tenderness periumbilical, RLQ, and LLQ with mild guarding to periumbilcal area. No rebound. No masses appreciated. EXTREMITIES: Normal range of motion, no pitting or edema. No clubbing or cyanosis. NEUROLOGICAL: Cranial nerves II through XII grossly intact. Normal speech, normal gait. PSYCH: Normal mood, normal affect. SKIN: Warm, Dry, normal turgor, no rashes or lesions noted. Course - Re-evaluation Re-evalutation: 04/06/19 28-year-old female with no history of presents for abdominal pain with n/v/d. Abdomen soft tenderness to periumbilical, LLQ, and RLQ with mild guarding periumbilical. Workup initiated. CT abdomen/pelvis shows SBO with transition point in mid abdomen. 04/06/19 14:04 Spoke to surgeon, Dr. Ledbetter, to discuss pt. Requested small bowel series with gastrograffin. Called X-ray tech to verify order. 04/06/19 20:14 Sign out given to ELLY Mayer. Once small bowel series report is back, ELLY Mayer to call Dr. Ledbetter for possible dispo. - Vital Signs Vital signs: Temp Pulse Resp BP Pulse Ox 97.4 F 73 16 96/56 L 99 04/06/19 16:46 04/06/19 16:46 04/06/19 16:46 04/06/19 16:46 04/06/19 16:46 - Laboratory Result Diagrams: 04/06/19 10:35 04/06/19 10:35 Laboratory results interpreted by me: 04/06/19 04/06/19 10:35 10:35 RDW 15.1 H [place] % (Auto) 2.6 L Seg Neutrophils % 83.5 H Urine Protein 30 H Urine Ketones 20 H Urine Ascorbic Acid 20 H Discharge - Discharge Clinical Impression: Abdominal pain Qualifiers: Abdominal location: unspecified location Qualified Code(s): R10.9 - Unspecified abdominal pain Nausea & vomiting Qualifiers: Vomiting type: unspecified Vomiting Intractability: unspecified Qualified Code(s): R11.2 - Nausea with vomiting, unspecified Disposition: OTHER
--- NOTE | 2019-04-06 20:24 | RADIOLOGY REPORT (SQ) ---
EXAM DESCRIPTION: Small bowel series CLINICAL HISTORY: 28 years Female, SBO on CT, with gastrograffin COMPARISON: CT 04/06/2019 FINDINGS: Small bowel follow-through was performed with Gastrografin. No fluoroscopy. Viscosity Tester: Contrast in the renal collecting systems and bladder. No bowel distention. Initial image: Contrast in the stomach 15 minutes: Contrast in the duodenum and much of the small bowel, without distention 45 minutes: Contrast scattered throughout the small bowel, in the stomach, and in the proximal colon. No small bowel distention. One hour: Contrast is seen throughout the colon, down to the rectum. IMPRESSION: Normal transit time of less than 45 minutes. Contrast passes to the rectum in less than 1 hour. No small bowel obstruction.
[2019-04-06 21:01] VITALS: BP 108/63
== END 2019-04-06 20:56 | disposition home or self-care (01) ==
LOC: ER 09:34
DX: R10.30 Lower abdominal pain, unspecified (principal); R11.2 Nausea with vomiting, unspecified; R19.7 Diarrhea, unspecified
CPT/HCPCS: 99284; 96372; 96360; 96361; 36415; 85025; 81025; 80053; 81001; 74250; 74177; J0500; S0119; J7030